=== PATIENT | female | born 1980 | race Caucasian/White ===

== ENCOUNTER 2016-08-14 07:30 | Inpatient (IN) | payer OTHER ==
[~2016-08-14] VITALS: Ht 167.6 cm; Wt 74.5 kg
[2016-08-15 14:30] LABS: BASOPHILS # (AUTO) 0.08 K/uL (0.00-0.20); BASOPHILS % (AUTO) 0.8 % (0.0-2.0); EOSINOPHILS # (AUTO) 0.12 K/uL (0.00-0.70); EOSINOPHILS % (AUTO) 1.29 % (1.0-6.0); HEMATOCRIT 41.3 % (36-46); LYMPHOCYTES # (AUTO) 2.9 K/uL (1.0-4.8); LYMPHOCYTES % (AUTO) 30.2 % (22.0-44.0); MEAN CORPUSCULAR HEMOGLOBIN 31.9 pg (26.0-34.0); MEAN CORPUSCULAR VOLUME 94 fL (80-100); MONOCYTES # (AUTO) 0.6 K/uL (0.1-1.0); MONOCYTES % (AUTO) 6.7 % (2.0-9.0); NEUTROPHILS # (AUTO) 5.9 K/uL (1.8-7.7); NEUTROPHILS % (AUTO) 61.1 % (40.0-70.0); PLATELET COUNT (AUTO) 302 K/uL (150-450); RED CELL DISTRIBUTION WIDTH 14.2 % (11.5-14.5); WHITE BLOOD COUNT (AUTO) 9.6 K/uL (4.5-11.0)
[2016-08-15 14:45] LABS: INR 0.9 (0.9-1.1)
[2016-08-15 15:40] LABS: ANION GAP 12 mmol/L (8-16); CALCIUM, TOTAL 9.2 mg/dL (8.8-10.5); CARBON DIOXIDE 27 mmol/L (22-29); CHLORIDE 102 mmol/L (98-107); GLOMERULAR FILTR. RATE CALC > 60 mL/min (>60); POTASSIUM 4.5 mmol/L (3.5-5.1); SODIUM SERUM 141 mmol/L (136-145); UREA NITROGEN, BLOOD 11 mg/dL (7-18)
[2016-08-15 15:47] LABS: BILIRUBIN,TOTAL 0.5 mg/dL (0.1-1.0)
[2016-08-15 15:48] LABS: ALANINE AMINOTRANSFERASE 30 U/L (12-78); ALBUMIN 4.4 g/dL (3.4-5.0); ASPARTATE AMINOTRANSFERASE 24 U/L (15-37); TOTAL PROTEIN, SERUM 8.1 g/dL (6.4-8.2)
[2016-08-18] MEDS ORDERED: VITA1TAB22 PO (12:20)
[2016-08-18] MEDS ORDERED: VITAD1000 PO (12:20)
[2016-08-18] MEDS ORDERED: HYDR-3705 PO (12:20)
[2016-08-18] MEDS ORDERED: MULT-1203 PO (12:20)
[2016-08-18] MEDS ORDERED: PHYT100T PO (12:20)
[2016-08-18] MEDS ORDERED: CYCL10 PO (12:20)
[2016-08-18] MEDS ORDERED: ASCO500 PO (12:20)
[2016-08-21] MEDS ORDERED: KETAMINE HCL 50 MG/ML 10 ML VIAL IVP ONE (05:25)
[2016-08-21] MEDS ORDERED: MIDAZOLAM HCL 2 MG/2 ML VIAL IVP ONE (05:25)
[2016-08-21] MEDS ORDERED: FentaNYL CITRATE-PF 250 MCG/5 ML VIAL IVP ONE (05:25)
[2016-08-21] MEDS ORDERED: RINGERS SOLUTION,LACTATED 1,000 ML IV ONE ×2 (07:00→07:07)
[2016-08-21] MEDS ORDERED: VANCOMYCIN HCL 1 GM/D5% WATER 200 ML IV ONE (07:15)
[2016-08-21] MEDS ORDERED: BUPIVACAINE HCL/PF 0.5% 30 ML VIAL ONE (07:57)
[2016-08-21] MEDS ORDERED: BUPIVACAINE LIPOSOME/PF 1.3%-13.3MG/ML SUSPENSION 10 ML VIAL INJ ONE (08:00)
[2016-08-21] MEDS ORDERED: HYDROmorphone 2 MG/ML SYRINGE IVP PRN (08:45)
[2016-08-21] MEDS: OXYGEN THERAPY IH SCH ×2 (08:45→20:00)
[2016-08-21] MEDS ORDERED: MEPERIDINE-PF 25 MG/ML SYRINGE IVP PRN (08:45)
[2016-08-21] MEDS ORDERED: DiphenhydrAMINE HCL 50 MG/ML VIAL IVP PRN (09:15)
[2016-08-21] MEDS ORDERED: MAG HYDROX/AL HYDROX/SIMETH 30 ML SUSP UDCUP PO PRN (09:15)
[2016-08-21] MEDS ORDERED: DEXAMETHASONE SOD PHOS 4 MG/ML VIAL IVP PRN (09:15)
[2016-08-21] MEDS ORDERED: ZOLPIDEM TARTRATE 10 MG TABLET PO PRN ×2 (09:15→12:00)
[2016-08-21] MEDS: FentaNYL CITRATE-PF 100 MCG/2 ML VIAL IVP PRN ×2 (11:20→11:28)
[2016-08-21] MEDS ORDERED: FentaNYL CITRATE-PF 100 MCG/2 ML VIAL ONE (11:21)
[2016-08-21 12:00] VITALS: BP 108/69
[2016-08-21] MEDS ORDERED: ACETAMINOPHEN 1000 MG/ISO-OSM 100 ML IV SCH (12:00)
[2016-08-21] MEDS ORDERED: ONDANSETRON HCL 4 MG/2 ML VIAL IVP PRN (12:00)
[2016-08-21] MEDS ORDERED: PROMETHAZINE HCL 25 MG/ML VIAL IM PRN (12:00)
[2016-08-21] MEDS ORDERED: DIAZEPAM 5 MG TABLET PO PRN (12:15)
[2016-08-21] MEDS: HYDROmorphone 2 MG/ML SYRINGE IVP PRN ×4 (12:17→18:52)
[2016-08-21] MEDS: CYCLOBENZAPRINE HCL 10 MG TABLET PO PRN (12:39)
[2016-08-21] MEDS: ACETAMINOPHEN 1000 MG/ISO-OSM 100 ML IV SCH ×2 (15:08→21:05)
[2016-08-21 16:45] VITALS: BP 112/70
[2016-08-21 19:44] VITALS: BP 121/56
[2016-08-21] MEDS: DOCUSATE SODIUM 100 MG CAPSULE PO SCH (21:05)
[2016-08-22] VITALS (7 sets, daily range): BP systolic 99–108; BP diastolic 56–71
[2016-08-22] MEDS: HYDROmorphone 2 MG/ML SYRINGE IVP PRN ×8 (00:03→21:25)
[2016-08-22] MEDS ORDERED: SODIUM CHLORIDE 0.9% 250 ML IV ONE (02:38)
[2016-08-22] MEDS: ACETAMINOPHEN 1000 MG/ISO-OSM 100 ML IV SCH (02:45)
[2016-08-22] MEDS: CYCLOBENZAPRINE HCL 10 MG TABLET PO PRN ×2 (06:06→20:08)
[2016-08-22] MEDS: OXYGEN THERAPY IH SCH ×2 (08:00→20:00)
[2016-08-22] MEDS: DOCUSATE SODIUM 100 MG CAPSULE PO SCH ×2 (09:30→19:41)
[2016-08-22] MEDS: OxyCODONE HCL/ACETAMINOPHEN 10-325 MG TABLET PO PRN ×5 (10:00→23:34)
[2016-08-22] MEDS ORDERED: OxyCODONE HCL/ACETAMINOPHEN 10-325 MG TABLET PO PRN (15:00)
[2016-08-22] MEDS ORDERED: METOCLOPRAMIDE HCL 5 MG/ML 2 ML VIAL IVP ONE (22:55)
[2016-08-22] MEDS ORDERED: LIDOCAINE HCL/PF 2% 5 ML VIAL IM ONE (22:55)
[2016-08-22] MEDS ORDERED: EPHEDrine SULFATE 50 MG/ML VIAL IM ONE (22:55)
[2016-08-22] MEDS ORDERED: PROPOFOL 1% 20 ML VIAL IVP ONE (22:55)
[2016-08-22] MEDS ORDERED: SUCCINYLCHOLINE CHLORIDE 20 MG/ML 10 ML VIAL IVP ONE (22:55)
[2016-08-22] MEDS ORDERED: NEOSTIGMINE METHYLSULFATE 1 MG/ML 10 ML VIAL IVP ONE (22:55)
[2016-08-22] MEDS ORDERED: GLYCOPYRROLATE 0.2 MG/ML VIAL IM ONE (22:55)
[2016-08-22] MEDS ORDERED: ONDANSETRON HCL 4 MG/2 ML VIAL IVP ONE (22:55)
[2016-08-22] MEDS ORDERED: DEXAMETHASONE SOD PHOS 4 MG/ML VIAL IVP ONE (22:55)
[2016-08-22] MEDS ORDERED: ALBUTEROL SULFATE HFA 90 MCG/PUFF 8 GM INHALER IH ONE (22:55)
[2016-08-23] MEDS: HYDROmorphone 2 MG/ML SYRINGE IVP PRN ×3 (00:56→08:56)
[2016-08-23 03:30] VITALS: BP 103/63
[2016-08-23 07:00] VITALS: BP 117/71
[2016-08-23] MEDS: OxyCODONE HCL/ACETAMINOPHEN 10-325 MG TABLET PO PRN ×3 (07:13→14:03)
[2016-08-23] MEDS: DOCUSATE SODIUM 100 MG CAPSULE PO SCH (08:22)
[2016-08-23 12:00] VITALS: BP 107/63
[2016-08-23] MEDS: CYCLOBENZAPRINE HCL 10 MG TABLET PO PRN (12:11)
[2016-08-23 16:00] VITALS: BP 116/68
== END 2016-08-23 16:50 | disposition home or self-care (01) | DRG 460 ==
LOC: 4E 08-21 06:40 → OBSVTOIN 08-21 06:40 → INTOOBSV 08-21 06:40
PROVIDERS: ADMIT Orthopaedic Surgery Orthopaedic Surgery of the Spine; ATTEND Orthopaedic Surgery Orthopaedic Surgery of the Spine
PROC: 0SB40ZZ Excision of Lumbosacral Disc, Open Approach (ICD-10-PCS; 2016-08-21)
PROC: 0SG30A0 Fusion of Lumbosacral Joint with Interbody Fusion Device, Anterior Approach, Anterior Column, Open Approach (ICD-10-PCS; principal; 2016-08-21 09:45)
PROC: BR131ZZ Fluoroscopy of Lumbar Disc(s) using Low Osmolar Contrast (ICD-10-PCS; 2016-08-22)
DX: M51.17 Intervertebral disc disorders with radiculopathy, lumbosacral region (principal); Z88.1 Allergy status to other antibiotic agents; Z88.8 Allergy status to other drugs, medicaments and biological substances; Z79.899 Other long term (current) drug therapy
CPT/HCPCS: 86850; 86900; 86901; 87081; 93306; 97116; 97161; 97165; 97530; 97535; C1713; G0238; J0131; J0330; J1100; J1170; J1200; J2250; J2405; J2704; J2765; J3010; J3370; J3490; J3535; J7050; J7120